=== PATIENT | male | born 1995 | race Hispanic/Latino ===

== ENCOUNTER 2018-05-16 01:30 | Emergency (ER) | payer SELFPAY ==
[~2018-05-16] VITALS: Ht 175.3 cm; Wt 72.1 kg
--- NOTE | 2018-05-16 01:47 | ED SKIN/ALLERGY COMPLAINT ---
History of Present Illness General Chief Complaint: Allergy Symptoms Stated Complaint: "RASH ALL OVER BODY" C/O SLIGHT DIFF BREATHING 96 Source: patient, family Exam Limitations: no limitations Vital Signs & Intake/Output Vital Signs & Intake/Output Vital Signs Date Time Temp Pulse Resp B/P B/P Pulse O2 O2 Flow FiO2 Mean Ox Delivery Rate 05/16 419 97.9 76 20 94/61 98 Room Air 05/16 0208 Room Air 05/16 0139 96.8 47 16 95/61 98 Room Air Allergies Coded Allergies: No Known Allergies (05/16/18) Reconcile Medications Prednisone 10 MG TABLET 1 TAB PO DAILY ALLERGIOC REACTION TAKE 3 TABS FOR 3 DAYS THEN TAKE 2 TABS FOR 3 DAYS THEN TAKE 1 TAB FOR 3 DAYS Triage Note: 22YO MALE TO TRIAGE W/CO RASH "ALL OVER ENTIRE BODY 30 MIN, FEELING DIZZY, LIGHTHEADED." Triage Nurses Notes Reviewed? yes HPI: Patient noticed hives all over his body. Positive itching. Patient denies any swelling in his mouth or throat. There is no difficulty breathing. Patient denies any new medications, foods or detergents. Patient took a Benadryl and then came into the emergency department. Patient states he is beginning to feel better after taking the one BENADRYL tablet. Past History Travel History Traveled to [place] past 21 day No Medical History Any Pertinent Medical History? none Neurological: NONE EENT: NONE Cardiovascular: NONE Respiratory: NONE Gastrointestinal: NONE Hepatic: NONE Renal: NONE Musculoskeletal: NONE Psychiatric: NONE Endocrine: NONE Surgical History Surgical History: non-contributory Psychosocial History What is your primary language [place] Tobacco Use: Never used ETOH Use: denies use Illicit Drug Use: marijuana Family History Hx Contributory? No Review of Systems Review of Systems Constitutional: Reports: no symptoms. EENTM: Reports: no symptoms. Respiratory: Reports: no symptoms. Cardiovascular: Reports: no symptoms. GI: Reports: no symptoms. Genitourinary: Reports: no symptoms. Musculoskeletal: Reports: no symptoms. Skin: Reports: see HPI, rash. Neurological/Psychological: Reports: no symptoms. Hematologic/Endocrine: Reports: no symptoms. Immunologic/Allergic: Reports: no symptoms. All Other Systems: Reviewed and Negative Physical Exam Physical Exam General Appearance: well developed/nourished, mild distress Head: atraumatic Eyes: Bilateral: PERRL, EOMI. Ears, Nose, Throat: normal pharynx, normal ENT inspection, hearing grossly normal Neck: normal inspection, supple Respiratory: normal breath sounds Cardiovascular: regular rate/rhythm Gastrointestinal: normal bowel sounds, soft, non-tender Back: normal inspection Extremities: normal inspection, normal range of motion, no edema Neurologic/Psych: awake, alert, oriented x 3, normal mood/affect Skin: rash Skin Problem Location: generalized Skin Problem Character: urticarial Lymphatic: no anterior cervical manish Progress Differential Diagnosis: allergic reaction, anaphylaxis, contact dermatitis Plan of Care: Current Medications Sig/Mone Start time Last Medication Dose Stop Time Status Admin Sodium Chloride 1,000 ML BOLUS ONE 05/16 200 AC (Normal Saline 0.9%) 05/16 259 Sodium Chloride 1,000 ML BOLUS ONE 05/16 200 AC 05/16 (Normal Saline 0.9%) 05/16 259 0207 Departure Departure Disposition: HOME OR SELF CARE Condition: Stable Clinical Impression Primary Impression: Allergic reaction Referrals: Patient Has No Primary Care Dr (PCP/Family) Additional Instructions: TAKE PREDNISONE PREWSXCRIBED RETURN IF SYPTOMS WORSEN OR FOR ANY CONCERNS Departure Forms: Customer Survey General Discharge Information Prescriptions: Current Visit Scripts Prednisone 1 TAB PO DAILY #18 TAB TAKE 3 TABS FOR 3 DAYS THEN TAKE 2 TABS FOR 3 DAYS THEN TAKE 1 TAB FOR 3 DAYS
[2018-05-16] MEDS ORDERED: PREDNISONE10 M2 PO (02:41)
[2018-05-16 04:19] VITALS: BP 94/61
== END 2018-05-16 04:34 ==
LOC: ERH 01:30
DX: T78.40XA Allergy, unspecified, initial encounter (principal)
CPT/HCPCS: 96374; 96375; J1200; J2930